=== PATIENT | female | born 1955 | race Caucasian/White ===

== ENCOUNTER 2017-12-07 06:20 | Outpatient (CLI) | END 2017-12-07 06:21 | disposition home or self-care (01) | LOC: AMBL 06:20 | PROVIDERS: ATTEND Internal Medicine | DX: R55 Syncope and collapse (principal); R53.1 Weakness; R42 Dizziness and giddiness; R00.0 Tachycardia, unspecified; C55 Malignant neoplasm of uterus, part unspecified; C78.00 Secondary malignant neoplasm of unspecified lung; T45.1X5A Adverse effect of antineoplastic and immunosuppressive drugs, initial encounter; K12.31 Oral mucositis (ulcerative) due to antineoplastic therapy; N18.3 Chronic kidney disease, stage 3 (moderate) ==